=== PATIENT | female | born 1955 | race Two or more races ===

== ENCOUNTER 2023-09-21 21:58 | Emergency (ER) | payer OTHER ==
[~2023-09-21] VITALS: Ht 162.6 cm; Wt 137.0 kg
[2023-09-21 22:02] VITALS: O2SAT 94
[2023-09-21 23:11] LABS: HEMATOCRIT. 44.1 % (36.0-48.0); HEMOGLOBIN. 13.9 g/dL (12.0-16.0); MEAN CORPUSCULAR HEMOGLOBIN 28.1 pg (28.0-32.0); MEAN CORPUSCULAR HGB CONC 31.5 g/dL (31.0-37.0); MEAN CORPUSCULAR VOLUME 89.3 fL (81.0-99.0); MEAN PLATELET VOLUME 7.5 fl (7.4-10.4); PLATELET 252 x1000/uL (130-400); RED BLOOD CELL COUNT 4.94 mill/uL (4.2-5.4); RED CELL DISTRIBUTION WIDTH 14.4 % (11.6-14.6); WHITE BLOOD COUNT 10.5 x1000/uL (4.5-11.0)
[2023-09-21 23:12] LABS: DIFFERENTIAL COMMENT 1
[2023-09-21 23:17] LABS: CARBON DIOXIDE 24 mEq/L (21-32); CHLORIDE 104 mEq/L (98-107); POTASSIUM 4.2 mEq/L (3.5-5.1); SODIUM 138 mEq/L (136-145)
[2023-09-21 23:18] LABS: CALCIUM 8.9 mg/dL (8.7-10.4)
[2023-09-21 23:23] LABS: CREATININE 2.8 mg/dL (0.6-1.0); GLUCOSE 149 mg/dL (70-105); TROPONIN I HIGH SENSITIVITY 28 ng/L (3.0-34); UREA NITROGEN BLOOD 28 mg/dL (9-23)
[2023-09-21 23:24] LABS: ALANINE AMINOTRANSFERASE 52 IU/L (10-49); ETHANOL BLOOD < 10 mg/dL (<10)
[2023-09-21 23:25] LABS: ALBUMIN 3.4 g/dL (3.2-4.8); ASPARTATE AMINOTRANSFERASE 85 IU/L (<34); BILIRUBIN TOTAL 2.4 mg/dL (0.1-1.0)
[2023-09-21 23:32] LABS: INR 1.2; PARTIAL THROMBOPLASTIN TIME 25.9 sec (23.4-31.0); PROTHROMBIN TIME 12.7 sec (9.6-11.0)
[2023-09-21 23:35] LABS: PLATELET ESTIMATE NORMAL
[2023-09-22] MEDS: CEFTRIAXONE 1GM/50ML 50 ML IV NR (02:07)
[2023-09-22] MEDS: MORPHINE SULFATE 2 MG/ML CPJ (NOT FOR IM USE) IV NR (02:08)
[2023-09-22] MEDS: VANCOMYCIN 1.5GM/250ML 250 ML IV NR (02:58)
[2023-09-22] MEDS ORDERED: ACETAMINOPHEN 650MG/20.3ML UDC GT PRN (05:30)
[2023-09-22] MEDS ORDERED: CLONIDINE 0.1MG TABLET PO PRN (05:30)
[2023-09-22] MEDS ORDERED: IPRATROPIUM/ALBUTEROL 0.5-3(2.5)MG/3ML NEB HHN PRN (05:30)
[2023-09-22] MEDS ORDERED: PANTOPRAZOLE SODIUM 40 MG/VIAL IV SCH (05:30)
[2023-09-22] MEDS ORDERED: LACTATED RINGERS 1,000 ML IV SCH (05:30)
[2023-09-22] MEDS ORDERED: MAGNESIUM/ALUMINUM HYDROXIDE/SIMETHICONE 30ML UDC PO PRN (05:30)
[2023-09-22] MEDS ORDERED: DEXTROSE 50% WATER 50ML SYRINGE IV PRN (05:45)
[2023-09-22 05:49] VITALS: BP 100/53; PULSE 60; RESP 20; TEMP 98.1
[2023-09-22] MEDS ORDERED: INSULIN LISPRO 100 UNITS/ML SUBCUT SCH (08:20)
[2023-09-22] MEDS ORDERED: ENOXAPARIN 40MG/0.4ML SYR SUBCUT SCH (09:00)
[2023-09-22] MEDS ORDERED: BLOOD SUGAR DIAGNOSTIC STRIP TEST SCH (09:00)
[2023-09-23] MEDS ORDERED: CEFTRIAXONE 1GM/50ML 50 ML IV SCH (06:00)
== END 2023-09-22 06:12 | disposition short-term general hospital (02) ==
LOC: ER 22:14 → CANBEDREQ 09-24 16:30
DX: L03.116 Cellulitis of left lower limb (principal); L03.115 Cellulitis of right lower limb; R62.7 Adult failure to thrive; N17.9 Acute kidney failure, unspecified; E11.9 Type 2 diabetes mellitus without complications; Z20.822 Contact with and (suspected) exposure to COVID-19
CPT/HCPCS: 80053; 80320; 83690; 85025; 85610; 85730; 87040; 84484; 36415; 84145; 71045; 93970; 93005; 99285; 83880; 96367; 96365; 96375; 87426; J3370; J0696; J2270; G0480